=== PATIENT | female | born 2000 | race Caucasian/White ===

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

== ENCOUNTER 2023-03-11 20:14 | Emergency (ER) | payer MEDICAID ==
[~2023-03-11] VITALS: Ht 167.6 cm; Wt 122.2 kg
[2023-03-11 20:33] VITALS: BP 114/84; PULSE 68; RESP 14; TEMP 98.3; O2SAT 96
[2023-03-11] MEDS ORDERED: SULF1TAB45 PO (20:41)
[2023-03-11] MEDS ORDERED: sulfamethoxazole/trimethoprim DS (800/160mg) tablet PO ONE (20:45)
== END 2023-03-11 20:52 | disposition home or self-care (01) ==
LOC: ER 20:14
DX: L02.415 Cutaneous abscess of right lower limb (principal); J45.909 Unspecified asthma, uncomplicated; F31.9 Bipolar disorder, unspecified; F12.10 Cannabis abuse, uncomplicated; Z91.040 Latex allergy status; Z79.899 Other long term (current) drug therapy
CPT/HCPCS: 99283

== ENCOUNTER 2023-09-29 12:48 | Emergency (ER) | payer MEDICAID ==
[~2023-09-29] VITALS: Ht 167.6 cm; Wt 117.0 kg
[2023-09-29 13:54] VITALS: TEMP 97.8
[2023-09-29 14:42] LABS: BASOPHILS # (AUTO) 0.1 X10'3 (0-0.2); BASOPHILS % (AUTO) 0.6 % (0-1); EOSINOPHILS # (AUTO) 0.1 X10'3 (0-0.9); EOSINOPHILS % (AUTO) 0.5 % (0-6); HEMATOCRIT 43.1 % (35.0-45.0); HEMOGLOBIN 14.5 g/dl (12.0-16.0); MEAN CORPUSCULAR HEMOGLOBIN 28.4 PG (27.0-31.0); MEAN CORPUSCULAR HGB CONC 33.7 g/dL (33.0-36.5); MEAN CORPUSCULAR VOLUME 84.4 FL (78-98); MEAN PLATELET VOLUME 9.3 FL (7.4-10.4); MONOCYTES # (AUTO) 1.4 X10'3 (0-0.9); MONOCYTES % (AUTO) 8.3 % (2-12); NEUTROPHILS # (AUTO) 11.7 X10'3 (1.8-7.7); NEUTROPHILS % (AUTO) 67.6 % (42-75); PLATELET COUNT 379 X10'3 (140-440); RED BLOOD COUNT 5.11 X10'6 (4.20-5.60); RED CELL DISTRIBUTION WIDTH 13.3 % (11.5-14.5); WHITE BLOOD COUNT 17.4 X10'3 (4.5-11.0)
[2023-09-29 14:57] LABS: ALANINE AMINOTRANSFERASE 25 U/L (12-78); ALBUMIN 3.8 G/DL (3.4-5.0); ALBUMIN/GLOBULIN RATIO 0.8 (1.1-1.5); ALKALINE PHOSPHATASE 68 IU/L (46-116); AMYLASE 68 U/L (25-115); ANION GAP 10 (8-16); ASPARTATE AMINO TRANSFERASE 16 U/L (10-37); BILIRUBIN,TOTAL 0.4 MG/DL (0.1-1.0); BLOOD UREA NITROGEN 7 MG/DL (7-18); BUN/CREATININE RATIO 10.6 (10.0-20.0); CALCIUM 9.5 MG/DL (8.5-10.1); CHLORIDE 104 MMOL/L (99-107); CREATININE 0.66 MG/DL (0.40-0.90); GLUCOSE 98 MG/DL (70-104); LIPASE 21 U/L (16-77); POTASSIUM 4.2 MMOL/L (3.5-5.1); SODIUM 140 MMOL/L (135-145); TOTAL PROTEIN 8.4 G/DL (6.4-8.2); eCRCL 125 ML/MIN; eGFR > 90 ML/MIN
[2023-09-29 15:27] LABS: URINE HCG NEGATIVE (NEG)
[2023-09-29 15:32] LABS: BILIRUBIN,URINE SMALL (Neg); CLARITY,URINE CLOUDY (Clear); COLOR,URINE YELLOW (Yellow); GLUCOSE, URINE NEGATIVE (Neg); KETONES,URINE NEGATIVE (Neg); LEUKOCYTE ESTERASE ,URINE TRACE (Neg); NITRITES, URINE NEGATIVE (Neg); OCCULT BLOOD,URINE LARGE (Neg); PH,URINE 6.5 (4.8-8.0); PROTEIN,URINE TRACE mg/dl (Neg); UROBILINOGEN,URINE 0.2 E.U/dL (0.2-1.0)
[2023-09-29 15:36] LABS: UA COLLECTION TYPE NON-SPECIFIED
[2023-09-29 16:06] LABS: RBC,URINE TNTC /HPF (0-2); WBC,URINE 0-4 /HPF (0-4)
[2023-09-29 16:07] LABS: BACTERIA,URINE FEW /HPF (Neg); HYALINE CASTS 0-3 /LPF (NEGATIVE); MUCUS STRANDS FEW /LPF (Neg); TRANSITIONAL EPI CELLS,URINE FEW /HPF
[2023-09-29 16:09] LABS: SQUAMOUS EPITHELIAL CELL,UR MANY /LPF (FEW)
[2023-09-29] MEDS ORDERED: iohexol 300mg/ml 100ml inj. ONE (16:36)
[2023-09-29] MEDS: ketorolac trometh. 30mg/ml inj. IV ONE (17:21)
[2023-09-29] MEDS: acetaminophen 1,000mg/100ml IV 100 ML IV STA (18:00)
[2023-09-29 18:46] VITALS: BP 99/46; PULSE 62; RESP 16; O2SAT 96
== END 2023-09-29 19:03 | disposition home or self-care (01) ==
LOC: ER 12:48
DX: R10.814 Left lower quadrant abdominal tenderness (principal); J45.909 Unspecified asthma, uncomplicated; F41.9 Anxiety disorder, unspecified; F31.9 Bipolar disorder, unspecified; Z90.49 Acquired absence of other specified parts of digestive tract; F12.90 Cannabis use, unspecified, uncomplicated; Z79.1 Long term (current) use of non-steroidal anti-inflammatories (NSAID); Z91.040 Latex allergy status
CPT/HCPCS: 36415; 74177; 80053; 81001; 81025; 82150; 83690; 85025; 96374; 96375; 99285; J0131; J1885; J3490; Q9967

== ENCOUNTER 2024-01-29 12:57 | Emergency (ER) | payer MEDICAID, OTHER ==
[~2024-01-29] VITALS: Ht 167.6 cm; Wt 99.8 kg
[~2024-01-29 12:57] MED LIST changes: +ONDA-243 PO; -ONDA4TAB12 PO
[2024-01-29] MEDS ORDERED: SULF1TAB49 PO (14:39)
[2024-01-29] MEDS: CefTRIAXone 1000mg IM Kit (w/lidocaine diluent) IM ONE (14:47)
[2024-01-29] MEDS: ketorolac trometh 30MG/ML vial 30 MG/ML VIAL IM ONE (14:47)
[2024-01-29 14:54] VITALS: BP 145/96; PULSE 70; RESP 16; TEMP 97.9; O2SAT 99
== END 2024-01-29 14:55 | disposition home or self-care (01) ==
LOC: ER 12:57
DX: L02.512 Cutaneous abscess of left hand (principal); J45.909 Unspecified asthma, uncomplicated; F32.A Depression, unspecified; F41.9 Anxiety disorder, unspecified; F12.90 Cannabis use, unspecified, uncomplicated; Z91.040 Latex allergy status; Z79.1 Long term (current) use of non-steroidal anti-inflammatories (NSAID); Z79.899 Other long term (current) drug therapy; Z90.49 Acquired absence of other specified parts of digestive tract
CPT/HCPCS: 96372; 99284; J0696; J1885

== ENCOUNTER 2024-10-07 18:15 | Emergency (ER) | payer SELFPAY ==
[~2024-10-07] VITALS: Ht 167.6 cm; Wt 117.5 kg
[2024-10-07 19:36] LABS: BILIRUBIN,URINE NEGATIVE (Neg); CLARITY,URINE CLOUDY (Clear); COLOR,URINE YELLOW (Yellow); GLUCOSE, URINE NEGATIVE (Neg); KETONES,URINE NEGATIVE (Neg); LEUKOCYTE ESTERASE ,URINE NEGATIVE (Neg); NITRITES, URINE NEGATIVE (Neg); OCCULT BLOOD,URINE NEGATIVE (Neg); PROTEIN,URINE NEGATIVE (Neg); UROBILINOGEN,URINE 0.2 E.U/dL (0.2-1.0)
[2024-10-07 19:37] LABS: URINE HCG NEGATIVE (NEG)
[2024-10-07 19:40] LABS: UA COLLECTION TYPE CLN CATCH MIDSTREAM
[2024-10-07 19:41] LABS: BASOPHILS # (AUTO) 0.1 X10'3 (0-0.2); BASOPHILS % (AUTO) 0.7 % (0-1); EOSINOPHILS # (AUTO) 0.2 X10'3 (0-0.9); EOSINOPHILS % (AUTO) 1.3 % (0-6); HEMATOCRIT 40.4 % (35.0-45.0); HEMOGLOBIN 13.6 g/dl (12.0-16.0); LYMPHOCYTES # (AUTO) 4.1 X10'3 (1.1-4.8); LYMPHOCYTES % (AUTO) 29.4 % (21-51); MEAN CORPUSCULAR HEMOGLOBIN 28.8 PG (27.0-31.0); MEAN CORPUSCULAR HGB CONC 33.7 g/dL (33.0-36.5); MEAN CORPUSCULAR VOLUME 85.4 FL (78-98); MEAN PLATELET VOLUME 10.9 FL (7.4-10.4); MONOCYTES # (AUTO) 1.1 X10'3 (0-0.9); MONOCYTES % (AUTO) 8.3 % (2-12); NEUTROPHILS # (AUTO) 8.3 X10'3 (1.8-7.7); NEUTROPHILS % (AUTO) 60.3 % (42-75); PLATELET COUNT 298 X10'3 (140-440); RED BLOOD COUNT 4.73 X10'6 (4.20-5.60); RED CELL DISTRIBUTION WIDTH 13.8 % (11.5-14.5); WHITE BLOOD COUNT 13.8 X10'3 (4.5-11.0)
[2024-10-07 19:42] LABS: AMORPHOUS URATES 4+; BACTERIA,URINE FEW /HPF (Neg); RBC,URINE 0-2 /HPF (0-2); SQUAMOUS EPITHELIAL CELL,UR MODERATE /LPF (FEW); WBC,URINE 0-4 /HPF (0-4)
[2024-10-07 19:56] LABS: ALANINE AMINOTRANSFERASE 25 U/L (12-78); ALBUMIN 3.9 G/DL (3.4-5.0); ALBUMIN/GLOBULIN RATIO 1.1 (1.1-1.5); ALKALINE PHOSPHATASE 60 IU/L (46-116); ANION GAP 7 (8-16); ASPARTATE AMINO TRANSFERASE 20 U/L (10-37); BILIRUBIN,TOTAL 0.2 MG/DL (0.1-1.0); BLOOD UREA NITROGEN 9 MG/DL (7-18); BUN/CREATININE RATIO 10.1 (10.0-20.0); CHLORIDE 107 MMOL/L (99-107); CREATININE 0.89 MG/DL (0.40-0.90); GLUCOSE 89 MG/DL (70-104); LIPASE 26 U/L (16-77); POTASSIUM 3.8 MMOL/L (3.5-5.1); SODIUM 143 MMOL/L (135-145); TOTAL CARBON DIOXIDE 29.2 MMOL/L (24-32); TOTAL PROTEIN 7.3 G/DL (6.4-8.2); eCRCL 92 ML/MIN; eGFR 79 ML/MIN
[2024-10-07] MEDS: dicyclomine 10mg/ml 2ml ampule IM ONE (22:00)
[2024-10-07] MEDS: ondansetron 4mg rapidly disintigrating tab PO ONE (22:00)
--- NOTE | 2024-10-07 22:04 | Physician Documentation ---
History of Present Illness Chief Complaint: Abdominal Pain w/vomiting Stated Complaint: THROWING UP Time Seen by MD: 21:40 OK to notify your PCP?: Yes Primary Medical Doctor: None Source: patient Mode of Arrival: POV, Ambulatory Exam Limitations: no limitations HPI 24-year-old female presents with left upper quadrant pain which radiates across her midline in down into the umbilical area past 4 days with nausea and vomiting. She has a history of celiac disease and IBS and is not sure if she has had any gluten products as of late. She reports that the pain feels like a stabbing sensation which then turned into an achy, crampy type pain that comes in waves. Denies diarrhea or , history of PCOS. Reports she has had her gallbladder removed. Medication Reconciliation Allergies: Coded Allergies: latex (Verified Allergy, Mild, RASH, 01/29/24) Scheduled Ibuprofen (Ibuprofen), 1 TAB PO Q8H Metoclopramide HCl (Reglan), 1 TAB PO BID Ondansetron Hcl (Zofran), 1 TAB PO Q8H Ondansetron Hcl (Zofran), 1 TAB PO Q8H Scheduled PRN Hydrocodone/Acetaminophen ([place] 5-325 Tablet), 1-2 TABLET PO TID PRN PRN for pain Hydrocodone/Acetaminophen ([place] 5-325 Tablet), 1 TAB PO TID PRN PRN for pain ONDANSETRON ODT 4mg tablet (Ondansetron Odt), 1 TABLET PO Q6H PRN for nausea/vomiting Ondansetron Hcl (Zofran), 1 TABLET PO Q6H PRN for nausea Durable Medical Equipment Inhaler, Assist Devices (Aerochamber Mini), EACH , (DME) Past Medical History Past Medical History: Asthma, Anxiety, Bipolar, Depression Past Surgical History: cholecystectomy Other Past Family History: Family history of Gallbladder disease Alcohol Use: None Drug Use: marijuana Lives with: Family Lives In: Home Occupation: student, child Review of Systems All Other Systems at this time: Reviewed and Negative Physical Exam Vital Signs: RN Vital Signs have been reviewed: Yes, Temperature: 97.8, Source: Oral, Heart Rate: 66, Respiratory Rate: 18, BP: 142/81, Pulse Oximetry: 100, Weight: 117.500 Oxygen Flow Rate: 0 Pulse Oximetry Reflects: adequate oxygenation Physical Exam General: Alert, no apparent distress. HEENT: PERRL, EOMI, no injection, moist mucous membranes. Neck: Full range of motion. Respiratory: Lungs clear, no respiratory distress. Chest: No accessory muscle use. Cardiovascular: Regular rate and rhythm, no murmurs. Gastrointestinal: Soft, tenderness to palpation of her entire abdomen worse in the epigastric area, nondistended. Bowels sounds present. Extremities: Normal range of motion, no deformity. Neurologic: Oriented x4. Psychiatric: Normal mood and affect. Skin: Normal color, warm and dry. No edema, no ecchymosis. Progress Results/Orders Reviewed/noted all lab results: Yes Results/Orders Orders - KATEY RUDOLPH Ct Abdomen Pelvis (10/07/24 21:45) Completed Orders - KATEY RUDOLPH [employer] Dicyclomine Inj (Bentyl Inj) (10/07/24 21:45) Ondansetron Disint. Tablet (Zofran Odt T (10/07/24 21:45) Vital Signs 10/07/24 10/07/24 18:17 21:03 Temp 97.8 Pulse 66 Resp 16 18 B/P (MAP) 142/81 Pulse Ox 100 O2 Flow Rate 0 Laboratory Tests Test 10/07/24 18:20 10/07/24 19:34 Urine Specimen Description Cln catch midstream Urine Color Yellow Urine Clarity Cloudy Urine pH 7.0 Urine Specific [place] 1.015 Urine Protein Negative Urine Glucose (UA) Negative Urine Ketones Negative Urine Occult Blood Negative Urine Nitrite Negative Urine Bilirubin Negative Urine Urobilinogen 0.2 Urine Leukocyte Esterase Negative Urine RBC 0-2 Urine WBC 0-4 Urine Squamous Epithelial Cells Moderate Urine Amorphous Urates 4+ Urine Bacteria Few Urine Culture Indicated Not ind Volume Urine Centrifuged 10 ml Urine HCG, Qualitative Negative Urine Comment White Blood Count 13.8 H Red Blood Count 4.73 Hemoglobin 13.6 Hematocrit 40.4 Mean Corpuscular Volume 85.4 Mean Corpuscular Hemoglobin 28.8 Mean Corpuscular Hemoglobin Concent 33.7 Red Cell Distribution Width 13.8 Platelet Count 298 Mean Platelet Volume 10.9 H Neutrophils (%) (Auto) 60.3 Lymphocytes (%) (Auto) 29.4 Monocytes (%) (Auto) 8.3 Eosinophils (%) (Auto) 1.3 Basophils (%) (Auto) 0.7 Neutrophils # (Auto) 8.3 H Lymphocytes # (Auto) 4.1 Monocytes # (Auto) 1.1 H Eosinophils # (Auto) 0.2 Basophils # (Auto) 0.1 CBC Comment Sodium Level 143 Potassium Level 3.8 Chloride Level 107 Carbon Dioxide Level 29.2 Anion Gap 7 L Blood Urea Nitrogen 9 Creatinine 0.89 Estimated GFR/1.73 m2 79 BUN/Creatinine Ratio 10.1 Glucose Level 89 Calcium Level 9.0 Total Bilirubin 0.2 Aspartate Amino Transf (AST/SGOT) 20 Alanine Aminotransferase (ALT/SGPT) 25 Alkaline Phosphatase 60 Total Protein 7.3 Albumin 3.9 Globulin 3.4 Albumin/Globulin Ratio 1.1 Lipase 26 Chemistry Comments Medical Decision Making Additional info obtained from: old records Findings 24-year-old female with left upper quadrant pain which radiates into her epigastric region and down into her umbilicus. She has been having this pain for the past 4 days which comes in waves starts as a stabbing pain and then becomes a cramping sensation. She has been having nausea and vomiting for which I gave some Zofran while here in the department. She has denied any diarrhea. She has a history of IBS and states that this feels different than her normal symptoms. Her physical exam is unremarkable except for tenderness to palpation of entire abdomen but worse in the epigastric region. For the pain I will give Bentyl while here in the department. I will order a CT abdomen pelvis no contrast to rule out any blockage, she is refusing to use IV contrast were or oral contrast at this time as her father had a bad reaction to contrast and he passed from that last year. Attempted to get patient CT scan, she refused scan at this time as she states is feeling much better after her medications. She has been educated that without a CT scan and without the CT scan with contrast it will be very difficult to attempt to identify her cause of the abdominal pain and vomiting. She is reques ting to be discharged to go home. She should follow up with her primary care provider in the next 3 days and return back here for any new or worsening symptoms. Differential Dx:Considerations: Include: AAA, Aortic dissection, Appendicitis, Bowel obstruction, Diverticular disease, GI hemorrhage, Inflammatory BD, Ischemic bowel, Ovarian cyst/torsion, Pancreatitis, Urinary tract infection Departure Disposition: 01 HOME / SELF CARE / HOMELESS Impression: Primary Impression: Abdominal pain Additional Impression: Vomiting Condition: Stable Discharge Instructions: Abdominal Pain (Nonspecific) Additional Instructions: Follow up with your regular doctor in the next 3 days and return back here for any new or worsening symptoms. Please try to avoid any foods with gluten Referrals: NO PRIMARY CARE PROVIDER (PCP) Education Educated: Patient Educated regarding: diagnosis, treatment, prognosis, need for follow up Additional Comment Medical Screen Exam This patient recieved a medical screening examination. After reviewing the individual's medical complaints with presenting symptoms and performing an appropriate physical examination, it was determined that no immediate life- threatening emergency medical condition is present. This individual is also not a women having contractions. Signature Scribe Signature: . Attestation: Scribed for Katey Rudolph [employer] by Katey Norman NP . 10/07/24 23:23 KATEY RUDOLPH [employer] Oct 07, 2024 22:04
[2024-10-07 23:26] VITALS: BP 132/80; PULSE 80; RESP 14; TEMP 98.1; O2SAT 99
== END 2024-10-07 23:28 | disposition home or self-care (01) ==
LOC: ER 18:15
DX: R10.12 Left upper quadrant pain (principal); R11.10 Vomiting, unspecified; J45.909 Unspecified asthma, uncomplicated; F12.90 Cannabis use, unspecified, uncomplicated; F41.9 Anxiety disorder, unspecified; F31.9 Bipolar disorder, unspecified; Z90.49 Acquired absence of other specified parts of digestive tract; Z91.040 Latex allergy status; Z79.899 Other long term (current) drug therapy
CPT/HCPCS: 36415; 80053; 81001; 81025; 83690; 85025; 96372; 99283; J0500